=== PATIENT | male | born 1995 | race African-American/Black ===

== ENCOUNTER 2016-06-23 02:39 | Emergency (ER) | payer OTHER ==
[~2016-06-23] VITALS: Ht 185.4 cm; Wt 98.0 kg
[~2016-06-23 02:39] MED LIST: BACT800T5 PO; IBUP800T23 PO; MOTR200T PO; PANT20 PO; SUCR1TAB PO; ZOFR4TAB3 SL
[2016-06-23 02:40] VITALS: BP 118/81; PULSE 66; RESP 18; TEMP 98.2; O2SAT 100
--- NOTE | 2016-06-23 03:31 | PD ---
HPI Chief Complaint: Injury Time Seen by Provider: 03:27 Travel History International Travel<30 days: No Contact w/Intl Traveler<30days: No Traveled to known affect area: No History of Present Illness HPI Patient comes in for evaluation of pain and swelling noted of his left middle finger 2 days. Patient denies any known trauma, but states he does chew his fingers. Patient denies doing anything for this. Patient having throbbing like pain without radiation cuticle his left little finger. Pain is worse with palpation. PFSH Past Medical History Medical History: Denies Significant Hx Diminished Hearing: No Tetanus Vaccination: < 5 Years Influenza Vaccination: No Past Surgical History Surgical History: No Previous Surgery Social History Alcohol Use: Yes Tobacco Use: No Substance Use: No Allergies-Medications (Allergen,Severity, Reaction): Coded Allergies: No Known Allergies (Unverified , 06/23/16) Reported Meds & Prescriptions Reported Meds & Active Scripts Active Naprosyn (Naproxen) 500 Mg Tab 500 Mg PO Q12HR PRN Bactrim DS (Sulfamethoxazole-Trimethoprim) 800-160 Mg Tab 1 Tab PO BID Review of Systems Except as stated in HPI: all other systems reviewed are Neg Physical Exam Narrative GENERAL: Well-developed, overly nourished, in no acute distress, and non-ill appearing. SKIN: Warm and dry. Paronychia noted left middle finger is tender to palpation. There is no felon noted. HEAD: Atraumatic. Normocephalic. EYES: Pupils equal and round. EOMI. No scleral icterus. No injection or drainage. ENT: No nasal bleeding or discharge. Mucous membranes pink and moist. NECK: Trachea midline. Supple. No nuclear rigidity. RESPIRATORY: No accessory muscle use. No respiratory distress. MUSCULOSKELETAL: No obvious deformities. No clubbing. No cyanosis. No edema. Full range of motion. NEUROLOGICAL: Awake and alert. No obvious cranial nerve deficits. Motor grossly within normal limits. Normal speech. PSYCHIATRIC: Appropriate mood and affect; insight and judgment normal. Data Data Last Documented VS Vital Signs Date Time Temp Pulse Resp B/P Pulse Ox O2 Delivery O2 Flow Rate FiO2 06/23/16 03:19 16 99 Room Air 06/23/16 02:40 98.2 66 118/81 MDM Medical Decision Making Medical Screen Exam Complete: Yes Emergency Medical Condition: Yes Differential Diagnosis Paronychia, felon, cellulitis, other Narrative Course The patient presented with a paronychia to the finger. There was no extending cellulitis or evidence of suppurative tendonitis. There was no evidence of subungual involvement or felon. Incision and drainage was performed and small pus was liberated. The patient was given wound care and infection warnings and discharged home on pain medicines and antibiotics. The patient was also instructed to follow up with primary care physician and warnings to return to ED if worsens, or as directed. The patient agreed with plan. Patient in no obvious distress upon re-evaluation. Patient was asked if they wanted to speak to my attending, which the patient did not wish to do at this time. Any questions/concerns in reference to patient diagnosis/condition discussed and clarified prior to patient's discharge. Reinforced sheer importance of close follow up with patient's primary physician or primary care clinic. Instructed patient to return to ED immediately, if symptoms return/ worsen. Pt showed understanding of above instructions. Further instructions and recommendations were detailed in discharge paperwork. Pt ambulated without difficulty out of ED at discharge. Procedures Procedure Narrative Verbal consent was obtained. Area was anesthetized using ethyl chloride spray. Small puncture wound was used using 18-gauge needle. Small amount purulent drainage was excised. Patient tolerated procedure well. There was no complications. Diagnosis Primary Impression: Paronychia Qualified Code: L03.012 - Paronychia, left Patient Instructions: General Instructions, Paronychia (ED) Additional Instructions: Follow-up with your primary care physician in 2-3 days for reevaluation. Take all medication as prescribed. Keep wound dry and clean as possible using soap and water. Return to the emergency department if symptoms get worse. Med/Other Pt SpecificInfo: Prescription(s) given Scripts Naproxen (Naprosyn)500 Mg Mrs076 Mg PO Q12HR PRN (PAIN SCALE 1 TO 10) #12 TAB Ref 0 Prov:Mich Bruno MD 06/23/16 Sulfamethoxazole-Trimethoprim (Bactrim DS)800-160 Mg Tab1 Tab PO BID #20 TAB Ref 0 Prov:Mich Bruno MD 06/23/16 Disposition: 01 DISCHARGE HOME Condition: Stable Sourav Mcghee Jun 23, 2016 03:31
[2016-06-23] MEDS ORDERED: BACT800T5 PO (03:32)
[2016-06-23] MEDS ORDERED: NAPR500 PO (03:32)
== END 2016-06-23 03:36 | disposition home or self-care (01) ==
LOC: NEPB 02:39
DX: L03.012 Cellulitis of left finger (principal)
CPT/HCPCS: 10060

== ENCOUNTER 2016-06-25 15:32 | Emergency (ER) | payer OTHER ==
[~2016-06-25] VITALS: Ht 185.4 cm; Wt 95.5 kg
[~2016-06-25 15:32] MED LIST changes: -IBUP800T23 PO; -MOTR200T PO; +NAPR500 PO; -PANT20 PO; -SUCR1TAB PO; -ZOFR4TAB3 SL
[2016-06-25 15:34] VITALS: BP 151/79; PULSE 78; RESP 16; TEMP 98.5; O2SAT 98
[2016-06-25] MEDS ORDERED: BUPIVACAINE HCL PF 0.5% 10 ML VIAL INFIL ONE (17:00)
[2016-06-25] MEDS ORDERED: LIDOCAINE HCL 1% 50 ML VIAL INFIL ONE (17:00)
--- NOTE | 2016-06-25 17:10 | PD ---
HPI Chief Complaint: Skin Problem Time Seen by Provider: 17:05 Travel History International Travel<30 days: No Contact w/Intl Traveler<30days: No Traveled to known affect area: No History of Present Illness HPI 21-year-old male presents to the emergency department for evaluation of left third finger swelling and pain for 4 days. Patient states that he does have a history of biting his fingernails. States that this has happened to him in the past. States he was seen in our emergency room 2 days ago and had a needle poked into the area to drain it and was placed on antibiotics. States he has been taking the antibiotics as prescribed. States that the swelling is the same as it was 2 days ago but that now there is a purplish discoloration to the area. States it is not improved at all but it is also not worse. Denies any fever, chills, numbness or tingling, discharge or drainage. No other complaints. PFSH Past Medical History Medical History: Denies Significant Hx Diminished Hearing: No Social History Alcohol Use: Yes Tobacco Use: No Substance Use: No Allergies-Medications (Allergen,Severity, Reaction): Coded Allergies: No Known Allergies (Unverified , 06/25/16) Reported Meds & Prescriptions Reported Meds & Active Scripts Active Naprosyn (Naproxen) 500 Mg Tab 500 Mg PO Q12HR PRN Bactrim DS (Sulfamethoxazole-Trimethoprim) 800-160 Mg Tab 1 Tab PO BID Review of Systems Except as stated in HPI: all other systems reviewed are Neg Physical Exam Narrative GENERAL: Well-nourished and well-developed male patient in no acute distress who is nontoxic appearing. SKIN: Warm and dry. HEAD: Normocephalic and atraumatic. EYES: No injection, drainage, or hyphema noted. PERRLA. EOMI. ENT: No nasal drainage noted. Oropharynx is clear. NECK: Supple and the trachea is midline. CARDIOVASCULAR: Regular rate and rhythm. RESPIRATORY: Breath sounds are equal bilaterally with no accessory muscle use, wheezing, rhonchi, or crackles. EXTREMITY: Left hand third finger with paronychia. No evidence of felon. Full range of motion in all joints. No joint swelling/injury. Normal opposition of thumb. Distal extremity neurovascularly intact with intact two point discrimination. NEUROLOGICAL: Awake, alert, and oriented. Normal speech and gait. Cranial nerves are grossly intact. Data Data Last Documented VS Vital Signs Date Time Temp Pulse Resp B/P Pulse Ox O2 Delivery O2 Flow Rate FiO2 06/25/16 15:34 98.5 78 16 151/79 98 Room Air Orders Bupivacaine Pf 0.5% Inj (Marcaine Pf 0.5 (06/25/16 17:00) Lidocaine 1% Inj (50 Ml) (Xylocaine 1% I (06/25/16 17:00) MDM Medical Decision Making Medical Screen Exam Complete: Yes Emergency Medical Condition: Yes Differential Diagnosis Paronychia versus abscess versus cellulitis Narrative Course 21-year-old male presents to the emergency department for evaluation of left hand third finger paronychia for 4 days. Patient is afebrile, vital signs are stable. He was seen here 2 days ago and had a needle drainage. He is reporting that the swelling has been the same since then, he is been taking the antibiotics as prescribed. There is a clear paronychia. No evidence of a felon. I&D is performed, see procedure narrative. Patient is instructed to continue taking antibiotics and advised warm soaks in Epsom salt. Advised to follow-up with his PCP. Discussed when to return to the emergency department. Patient verbalizes understanding and agreement with treatment plan. Procedures Procedure Narrative After the risks and benefits were discussed the following procedure was performed: INCISION AND DRAINAGE OF ABSCESS: The area was prepped and was sterilely draped. A digital block is performed using 1% lidocaine and 0.5% bupivacaine. The finger was properly anesthetized. A number 11 scalpel was used to make a 0.5 -cm incision across the area of the abscess. Purulence was expelled. Cultures were obtained. The abscess was drained an irrigated with normal saline. Sterile dressing applied. Diagnosis Primary Impression: Paronychia Qualified Code: L03.012 - Paronychia, left Referrals: Primary Care Physician Patient Instructions: General Instructions, Paronychia (ED) Additional Instructions: Soak finger in warm epsom salts. Continue antibiotics. Follow-up with your Primary Care Physician. Return to the ED for any acute worsening of symptoms. Med/Other Pt SpecificInfo: No Change to Meds Disposition: 01 DISCHARGE HOME Condition: Stable Malina Perez Jun 25, 2016 17:10
== END 2016-06-25 17:35 | disposition home or self-care (01) ==
LOC: NEPB 15:32
DX: L03.012 Cellulitis of left finger (principal); L02.512 Cutaneous abscess of left hand; B96.89 Other specified bacterial agents as the cause of diseases classified elsewhere; B96.3 Hemophilus influenzae [H. influenzae] as the cause of diseases classified elsewhere
CPT/HCPCS: 10060; 86403; 87070; 87185

== ENCOUNTER 2016-07-01 20:11 | Inpatient (IN) | payer OTHER ==
[~2016-07-01] VITALS: Ht 185.4 cm; Wt 95.0 kg
[2016-07-01 20:13] VITALS: BP 124/77; PULSE 107; RESP 16; TEMP 99.5; O2SAT 98
[2016-07-01] MEDS ORDERED: CEPH250C PO (20:36)
--- NOTE | 2016-07-01 22:53 | PD ---
HPI Chief Complaint: GI Complaint Time Seen by Provider: 22:36 Travel History International Travel<30 days: No Contact w/Intl Traveler<30days: No Traveled to known affect area: No History of Present Illness HPI The patient is a 21 year old male who presents to the [facility] emergency department with a history of left upper quadrant abdominal pain, nausea or vomiting, and loss of appetite that began on Thursday. The patient reports that he is currently on naproxen, Bactrim DS, and Keflex since June 23 related to a left hand cellulitis. He reports that the cellulitis has improved , however now he is experiencing dark stools 2 on Thursday, subjective fever, nausea and vomiting 3, with blood in his emesis yesterday times one. He reports that he has lightheaded sensation although he has not been eating well for the last 4 days. He reports that he has shortness of breath with exertion. The patient reports that recently he has been having sensations of acid reflux , heartburn. The patient denies any cough, congestion, neck pain, chest pain, diarrhea, urinary symptoms, or neurologic symptoms. [facility] Past Medical History Narrative Medical The patient's past medical history is reportedly none. Medical History: Denies Significant Hx Diminished Hearing: No Tetanus Vaccination: Unknown Influenza Vaccination: No Past Surgical History Narrative Surgical The patient's past surgical history is reportedly none. Surgical History: No Previous Surgery Social History Alcohol Use: Yes Tobacco Use: No Substance Use: No Allergies-Medications (Allergen,Severity, Reaction): Coded Allergies: No Known Allergies (Unverified , 07/01/16) Reported Meds & Prescriptions Reported Meds & Active Scripts Active Naprosyn (Naproxen) 500 Mg Tab 500 Mg PO Q12HR PRN Bactrim DS (Sulfamethoxazole-Trimethoprim) 800-160 Mg Tab 1 Tab PO BID Reported Cephalexin 250 Mg Cap 250 Mg PO Q6H Review of Systems Except as stated in HPI: all other systems reviewed are Neg General / Constitutional: Positive: Fever (subjective) Eyes: No: Visual changes HENT: Positive: Lightheadedness, No: Headaches Cardiovascular: Positive: Dyspnea on exertion, No: Chest Pain or Discomfort Respiratory: Positive: Shortness of Breath, No: Cough Gastrointestinal: Positive: Nausea, Vomiting, Abdominal Pain, Hematemesis, Changes in Bowel Habits, Indigestion, Loss of Appetite Genitourinary: No: Dysuria Musculoskeletal: No: Pain Skin: No Rash Neurologic: No: Weakness, Focal Abnormalities, Change in Mentation, Slurred Speech, Sensory Disturbance Psychiatric: No: Depression Endocrine: No: Polydipsia Hematologic/Lymphatic: No: Easy Bruising Physical Exam Narrative General: The patient is a well-developed nourished male in no acute distress. Head and Neck exam: Head is normocephalic atraumatic. Eyes: EOMI, pupils are equal round and reactive to light. Nose: Midline septum with pink mucous membranes Mouth: Dentition unremarkable. Moist mucus membranes. Posterior oropharynx is not erythematous. No tonsillar hypertrophy. Uvula midline. Airway patent. Neck: No palpable lymphadenopathy. No nuchal rigidity. No thyromegaly. Cardiovascular: Sinus tachycardia in the low 100s without murmurs, gallops, or rubs. No pulse deficit to the extremities and simultaneous palpation of his radial artery and auscultation. Lungs: Clear to auscultation bilaterally. No wheezes, rhonchi, or rales. Abdomen: Soft, with tenderness on palpation of the left upper quadrant of the abdomen, no other tenderness on palpation of the other quadrants of the abdomen. No guarding, rebound, or rigidity. Negative [place] sign. Normal bowel sounds are audible. No tenderness on palpation of McBurney's point. Extremities: No clubbing, cyanosis, or edema. No calf tenderness on palpation. 2+ pulses in bilateral upper extremities. Back: No costovertebral angle tenderness to palpation. Neurologic Exam: Grossly nonfocal. Skin Exam: No rash noted. Intact skin that is warm and dry. RECTAL EXAM: No masses or tenderness, stool is black in color, Hemoccult positive. Data Data Last Documented VS Vital Signs Date Time Temp Pulse Resp B/P Pulse Ox O2 Delivery O2 Flow Rate FiO2 07/01/16 20:38 16 07/01/16 20:13 99.5 107 124/77 98 Orders Complete Blood Count With Diff (07/01/16 22:46) Comprehensive Metabolic Panel (07/01/16 22:46) Prothrombin Time / Inr (Pt) (07/01/16 22:46) Act Partial Throm Time (Ptt) (07/01/16 22:46) Lipase (07/01/16 22:46) Urinalysis - C+S If Indicated (07/01/16 22:46) Magnesium (Mg) (07/01/16 22:46) Enteric Path (Stool) (07/01/16 22:46) C Diff Toxin Pcr (07/01/16 22:46) Chest, Single Ap (07/01/16 22:46) Iv Access Insert/Monitor (07/01/16 22:46) Ecg Monitoring (07/01/16 22:46) Oximetry (07/01/16 22:46) Type And Screen (07/01/16 22:46) Stool Wbc (Leukocytes) (07/01/16 22:46) Sodium Chlor 0.9% 1000 Ml Inj (Ns 1000 M (07/01/16 23:00) Ondansetron Inj (Zofran Inj) (07/01/16 23:00) Pantoprazole Inj (Protonix Inj) (07/01/16 23:00) Admit Order (Ed Use Only) (07/02/16 01:11) Ct Abd/Pel W Iv Contrast(Rout) (07/02/16 01:11) Pantoprazole Inj (Protonix Inj) (07/02/16 01:15) Pantoprazole Inj (Protonix Inj) (07/02/16 01:15) Labs Laboratory Tests Test 07/01/16 07/01/16 23:15 23:20 Sodium Level 136 MEQ/L Potassium Level 4.2 MEQ/L Chloride Level 98 MEQ/L Carbon Dioxide Level 25.3 MEQ/L Anion Gap 13 MEQ/L Blood Urea Nitrogen 16 MG/DL Creatinine 1.47 MG/DL Estimat Glomerular Filtration 73 ML/MIN Rate Random Glucose 93 MG/DL Calcium Level 8.4 MG/DL Magnesium Level 2.1 MG/DL Total Bilirubin 0.3 MG/DL Aspartate Amino Transf 52 U/L (AST/SGOT) Alanine Aminotransferase 30 U/L (ALT/SGPT) Alkaline Phosphatase 65 U/L Total Protein 8.2 GM/DL Albumin 4.2 GM/DL Lipase 273 U/L Prothrombin Time 17.2 SEC Prothromb Time International 1.5 RATIO Ratio Activated Partial 42.5 SEC Thromboplast Time White Blood Count 3.3 TH/MM3 Red Blood Count 5.21 MIL/MM3 Hemoglobin 11.9 GM/DL Hematocrit 37.2 % Mean Corpuscular Volume 71.4 FL Mean Corpuscular Hemoglobin 22.9 PG Mean Corpuscular Hemoglobin 32.1 % Concent Red Cell Distribution Width 13.7 % Platelet Count 117 TH/MM3 Mean Platelet Volume 8.3 FL Neutrophils (%) (Auto) 64.6 % Lymphocytes (%) (Auto) 27.6 % Monocytes (%) (Auto) 7.3 % Eosinophils (%) (Auto) 0.0 % Basophils (%) (Auto) 0.5 % Neutrophils # (Auto) 2.1 TH/MM3 Lymphocytes # (Auto) 0.9 TH/MM3 Monocytes # (Auto) 0.2 TH/MM3 Eosinophils # (Auto) 0.0 TH/MM3 Basophils # (Auto) 0.0 TH/MM3 CBC Comment AUTO DIFF Differential Total Cells 100 Counted Neutrophils % (Manual) 35 % Band Neutrophils % 43 % Lymphocytes % 14 % Monocytes % 7 % Neutrophils # (Manual) 2.6 TH/MM3 Metamyelocytes 1 % Differential Comment FINAL DIFF MANUAL Platelet Estimate LOW Platelet Morphology Comment NORMAL Blood Type O POSITIVE Antibody Screen NEGATIVE Blood Bank Comment MDM Medical Decision Making Medical Screen Exam Complete: Yes Emergency Medical Condition: Yes Medical Record Reviewed: Yes Interpretation(s) Laboratory Tests Test 07/01/16 07/01/16 23:15 23:20 Creatinine 1.47 MG/DL (0.60-1.30) Estimat Glomerular Filtration 73 ML/MIN (>89) Rate Calcium Level 8.4 MG/DL (8.5-10.1) Aspartate Amino Transf 52 U/L (15-37) (AST/SGOT) Prothrombin Time 17.2 SEC (9.8-11.6) Activated Partial 42.5 SEC Thromboplast Time (24.3-30.1) White Blood Count 3.3 TH/MM3 (4.0-11.0) Hemoglobin 11.9 GM/DL (13.0-17.0) Hematocrit 37.2 % (39.0-51.0) Mean Corpuscular Volume 71.4 FL (80.0-100.0) Mean Corpuscular Hemoglobin 22.9 PG (27.0-34.0) Platelet Count 117 TH/MM3 (150-450) Lymphocytes # (Auto) 0.9 TH/MM3 (1.0-4.8) Band Neutrophils % 43 % (0-6) Platelet Estimate LOW (NORMAL) Last Impressions Abdomen/Pelvis CT 07/02/16 0111 Signed Impressions: Service Date/Time: Saturday, July 02, 2016 01:24 - CONCLUSION: 1. No acute findings on abdomen and pelvic CT. Small right renal cyst. Small hiatal hernia. Herbert Garcia MD Chest X-Ray 07/01/16 2246 Signed Impressions: Service Date/Time: Friday, July 01, 2016 22:59 - CONCLUSION: No acute disease. Herbert Garcia MD Differential Diagnosis AVM all formation, versus colitis, versus peptic ulcer bleeding, versus hemorrhagic esophagitis, versus gastritis Narrative Course During the course of the patients emergency department visit, the patients history, examination, and differential diagnosis were reviewed with the patient. The patient had IV access obtained and blood work sent for analysis. The patient was placed on a cork compounder with oximetry and blood pressure monitoring. Stool studies were ordered including C. difficile toxin. The patient was provided Protonix 40 mg IV, Zofran 4 mg IV, normal saline 1 L IV fluid bolus. The patient on rectal examination was noted to have Hemoccult positive stools and was given an additional Protonix 40 mg IV, Protonix 80 mg IV per hour drip was started. The patients laboratory studies were reviewed and remarkable for a CBC that shows a white count of 3.3, hemoglobin 11.9, platelets 117, neutrophils 35, bands 43, CMP is remarkable for a creatinine of 1.47, calcium 8.3, AST 52, INR 1.5 Radiology studies were reviewed and remarkable for a chest x-ray that shows no acute abnormality. CT scan of the abdomen and pelvis shows no acute abnormality , small right renal cyst, small hiatal hernia. Given the patient's coagulopathy, Hemoccult positive stools, GI bleed, the patient will be admitted to the hospital for continued evaluation and treatment. The patients results were discussed with the patient, including the plan of care. I explained that further testing and/ or monitoring is indicated based on the patients history, examination, and/ or laboratory findings. Therefore, I recommended admission for additional evaluation. The patient expressed understanding and was agreeable with this plan. The patient was admitted to the hospital in stable condition and sent to a [facility]. Physician Communication Physician Communication The patient's case was discussed with Dr. Masters who did agree to admit the patient for further evaluation and treatment at this time. Diagnosis Primary Impression: GI bleed Qualified Code: K92.2 - Gastrointestinal hemorrhage, unspecified gastrointestinal hemorrhage type Additional Impressions: Coagulopathy Thrombocytopenia Admitting Information Admitting Physician Requests: Admit Crissy Gould MD Jul 01, 2016 22:53
[2016-07-01] MEDS ORDERED: PANTOPRAZOLE SODIUM 40 MG VIAL IV PUSH ONE (23:00)
[2016-07-01] MEDS ORDERED: SODIUM CHLOR 0.9% 1000 ML INJ 1,000 ML IV ONE (23:00)
[2016-07-01] MEDS ORDERED: ONDANSETRON HCL 4 MG/2 ML VIAL IV ONE (23:00)
--- NOTE | 2016-07-01 23:09 | RADRPT ---
EXAM DATE/TIME: 07/01/2016 22:59 [facility] COMPARISON: No previous studies available for comparison. INDICATIONS : Vomiting and abdominal pain for the past few days. MEDICAL HISTORY : None. SURGICAL HISTORY : None. ENCOUNTER: Initial ACUITY: 4 - 6 days PAIN SCORE: 5/10 LOCATION: Bilateral chest FINDINGS: A single view of the chest demonstrates the lungs to be symmetrically aerated without evidence of mas s, infiltrate or effusion. The cardiomediastinal contours are unremarkable. Osseous structures are intact. CONCLUSION: No acute disease. Herbert Garcia MD on July 01, 2016 at 23:07 Board Certified Radiologist. This report was verified electronically.
[2016-07-01 23:31] LABS: AUTOMATED NEUTROPHIL # 2.1 TH/MM3 (1.8-7.7); BASOPHIL % 0.5 % (0.0-2.0); HEMATOCRIT 37.2 % (39.0-51.0); LYMPH % 27.6 % (9.0-44.0); LYMPHOCYTE # 0.9 TH/MM3 (1.0-4.8); MEAN CELL VOLUME 71.4 FL (80.0-100.0); MEAN CORPUSCULAR HEMOGLOBIN 22.9 PG (27.0-34.0); MEAN CORPUSCULAR HGB CONC 32.1 % (32.0-36.0); MONO % 7.3 % (0.0-8.0); NEUT % 64.6 % (16.0-70.0); PLATELET COUNT 117 TH/MM3 (150-450); RED BLOOD COUNT 5.21 MIL/MM3 (4.50-5.90); RED CELL DISTRIBUTION WIDTH 13.7 % (11.6-17.2); WHITE BLOOD COUNT 3.3 TH/MM3 (4.0-11.0)
[2016-07-01 23:41] LABS: APTT (PATIENT) 42.5 SEC (24.3-30.1); INTERNATIONAL NORMALIZED RATIO 1.5 RATIO; PROTHROMBIN TIME - PATIENT 17.2 SEC (9.8-11.6)
[2016-07-01 23:44] LABS: HEMO FLAGS AUTO DIFF
[2016-07-01 23:54] LABS: ALKALINE PHOSPHATASE 65 U/L (45-117); TOTAL BILIRUBIN ADULT 0.3 MG/DL (0.2-1.0)
[2016-07-01 23:58] LABS: ALT (GPT) 30 U/L (12-78); ANION GAP 13 MEQ/L (5-15); AST (GOT) 52 U/L (15-37); BICARBONATE 25.3 MEQ/L (21.0-32.0); BLOOD UREA NITROGEN 16 MG/DL (7-18); CHLORIDE 98 MEQ/L (98-107); GLOMERULAR FILTRATION RATE 73 ML/MIN (>89); MAGNESIUM 2.1 MG/DL (1.5-2.5); POTASSIUM 4.2 MEQ/L (3.5-5.1); SODIUM (NA) 136 MEQ/L (136-145)
[2016-07-02] VITALS (9 sets, daily range): BP systolic 101–115; BP diastolic 56–72; PULSE 62–98; RESP 18–20; TEMP 98.8–103.1; O2SAT 92–100
[2016-07-02] MEDS ORDERED: PANTOPRAZOLE INJ 80 MG in SODIUM CHLORIDE 0.9% INJ 100 ML IV SCH (01:15)
[2016-07-02] MEDS ORDERED: PANTOPRAZOLE SODIUM 40 MG VIAL IV PUSH ONE (01:15)
[2016-07-02] MEDS ORDERED: SODIUM CHLORIDE 0.9% FLUSH 5 ML FLUSH FLUSH PRN (01:30)
[2016-07-02] MEDS ORDERED: NALOXONE HCL 0.4 MG/ML AMP IV PRN (01:30)
[2016-07-02] MEDS ORDERED: IOHEXOL 350 MG/ML 10 ML VIAL (for RAD DIAG) IV ONE (01:33)
[2016-07-02 01:54] LABS: BANDS 43 % (0-6); METAMYELOCYTES 1 % (0-1); NEUTROPHIL # MANUAL DIFF 2.6 TH/MM3 (1.8-7.7); PLATELET ESTIMATE SMEAR LOW (NORMAL); PLATELET MORPHOLOGY NORMAL (NORMAL); POLYS (SEG NEUTROPHILS) 35 % (16-70); SCAN/DIFF FINAL DIFF MANUAL; WBC DIFF SAMPLE 100
--- NOTE | 2016-07-02 01:54 | RADRPT ---
EXAM DATE/TIME: 07/02/2016 01:24 [facility] COMPARISON: No previous studies available for comparison. INDICATIONS : Nausea vomiting and constipation for three days IV CONTRAST: 95 cc Omnipaque 350 (iohexol) IV ORAL CONTRAST: No oral contrast ingested. RADIATION DOSE: 10.6 CTDIvol (mGy) MEDICAL HISTORY : None SURGICAL HISTORY : None. ENCOUNTER: Initial ACUITY: 3 days PAIN SCALE: 4/10 LOCATION: Diffuse abdomen TECHNIQUE: Volumetric scanning of the abdomen and pelvis was performed. Using automated exposure control and ad justment of the mA and/or kV according to patient size, radiation dose was kept as low as reasonably achievable to obtain optimal diagnostic quality images. FINDINGS: Lung bases are clear. Small hiatal hernia. No acute findings in the liver, spleen, adrenals, kidneys or pancreas. A 1.9 cm cyst lower pole right kidney. No calcified gallstones or biliary ductal dilatation. There is no free fluid or free air. No bowel obstruction. CONCLUSION: 1. No acute findings on abdomen and pelvic CT. Small right renal cyst. Small hiatal hernia. Herbert Garcia MD on July 02, 2016 at 1:49 Board Certified Radiologist. This report was verified electronically.
[2016-07-02] MEDS: SODIUM CHLORIDE 0.9% FLUSH 5 ML FLUSH FLUSH SCH ×2 (08:09→21:00)
--- NOTE | 2016-07-02 10:17 | PD.CONS ---
HPI History of Present Illness This is a 21 year old AA male with out significant PMH who presents to the ED for evaluation of acute onset of RUQ pain, hematemesis, black tarry stools, and loss of appetite that began on Thursday. Patient has been on on naproxen, Bactrim DS, and Keflex since June 23 related to a left hand cellulitis. He drinks socially, no previous history of this. Reports the emesis is dark red usually twice a day. He had black tarry stools on Thursday, but none after that till today. He reports emesis X 2 this morning and black tarry stools X 2 as well 2 hours ago. The pain is throbbing in nature, began on Thursday. He denies hematochezia. He reports shortness of breath, chills, loss of appetite, light headed sensation, and recent heart burn. CT was done and that showed no acute findings, small renal cyst, and small hiatal hernia. hgb is 11.9, slight elevation of AST 52. (Sarbjit Hernandez) PFSH Past Medical History Cellulitis of left hand Past Surgical History None (Sarbjit Hernandez) Coded Allergies: No Known Allergies (Unverified , 07/01/16) Medications Current Medications Medications (Trade) Dose Ordered Sig/Aliza Route Start Time Stop Time Status Last Admin (Protonix Inj/NS Inj) 100 ml @ 10 mls/hr CONTINUOUS IV 07/02/16 01:15 07/02/16 04:25 (NS Flush) 2 ml UNSCH PRN FLUSH 07/02/16 01:30 (NS Flush) 2 ml BID FLUSH 07/02/16 09:00 (Narcan Inj) 0.4 mg UNSCH PRN IV 07/02/16 01:30 Family History Non contributory Social History Drinks socially No smoking No illicit drug use (Sarbjit Hernandez) Review of Systems Constitutional: COMPLAINS OF: Fatigue, Chills Endocrine: DENIES: Polyuria Eyes: DENIES: Double Vision Ears, nose, mouth, throat: DENIES: Hoarseness Respiratory: COMPLAINS OF: Shortness of breath Cardiovascular: DENIES: Lower Extremity Edema Gastrointestinal: COMPLAINS OF: Abdominal pain, Black stools, Nausea, Vomiting , Heartburn, Hematemesis, DENIES: Bloody stools, Constipation, Diarrhea, Difficulty Swallowing, Anorexia, Odynophagia, Swelling of Abdomen Genitourinary: DENIES: Hematuria Musculoskeletal: DENIES: Neck pain Integumentary: DENIES: Jaundice Hematologic/lymphatic: DENIES: Bruising Immunologic/allergic: DENIES: Eczema Neurologic: DENIES: Abnormal gait Psychiatric: DENIES: Anxiety (Sarbjit Hernandez) GI Exam Vitals I&O Vital Signs Date Time Temp Pulse Resp B/P Pulse Ox O2 Delivery O2 Flow Rate FiO2 07/02/16 08:00 102.5 98 18 105/59 100 07/02/16 04:41 87 07/02/16 03:42 102.2 94 20 111/56 100 07/02/16 03:00 86 20 104/58 99 Room Air 07/02/16 01:42 101.0 94 20 108/66 99 Room Air 07/01/16 20:38 16 07/01/16 20:13 99.5 107 16 124/77 98 Imaging Last Impressions Abdomen/Pelvis CT 07/02/16 0111 Signed Impressions: Service Date/Time: Saturday, July 02, 2016 01:24 - CONCLUSION: 1. No acute findings on abdomen and pelvic CT. Small right renal cyst. Small hiatal hernia. Herbert Garcia MD Chest X-Ray 07/01/166 Signed Impressions: Service Date/Time: Friday, July 01, 2016 22:59 - CONCLUSION: No acute disease. Herbert Garcia MD Laboratory Test 07/01/16 07/01/16 23:15 23:20 Sodium Level 136 MEQ/L Potassium Level 4.2 MEQ/L Chloride Level 98 MEQ/L Carbon Dioxide Level 25.3 MEQ/L Anion Gap 13 MEQ/L Blood Urea Nitrogen 16 MG/DL Creatinine 1.47 MG/DL Estimat Glomerular Filtration 73 ML/MIN Rate Random Glucose 93 MG/DL Calcium Level 8.4 MG/DL Magnesium Level 2.1 MG/DL Total Bilirubin 0.3 MG/DL Aspartate Amino Transf 52 U/L (AST/SGOT) Alanine Aminotransferase 30 U/L (ALT/SGPT) Alkaline Phosphatase 65 U/L Total Protein 8.2 GM/DL Albumin 4.2 GM/DL Lipase 273 U/L Prothrombin Time 17.2 SEC Prothromb Time International 1.5 RATIO Ratio Activated Partial 42.5 SEC Thromboplast Time White Blood Count 3.3 TH/MM3 Red Blood Count 5.21 MIL/MM3 Hemoglobin 11.9 GM/DL Hematocrit 37.2 % Mean Corpuscular Volume 71.4 FL Mean Corpuscular Hemoglobin 22.9 PG Mean Corpuscular Hemoglobin 32.1 % Concent Red Cell Distribution Width 13.7 % Platelet Count 117 TH/MM3 Mean Platelet Volume 8.3 FL Neutrophils (%) (Auto) 64.6 % Lymphocytes (%) (Auto) 27.6 % Monocytes (%) (Auto) 7.3 % Eosinophils (%) (Auto) 0.0 % Basophils (%) (Auto) 0.5 % Neutrophils # (Auto) 2.1 TH/MM3 Lymphocytes # (Auto) 0.9 TH/MM3 Monocytes # (Auto) 0.2 TH/MM3 Eosinophils # (Auto) 0.0 TH/MM3 Basophils # (Auto) 0.0 TH/MM3 CBC Comment AUTO DIFF Differential Total Cells 100 Counted Neutrophils % (Manual) 35 % Band Neutrophils % 43 % Lymphocytes % 14 % Monocytes % 7 % Neutrophils # (Manual) 2.6 TH/MM3 Metamyelocytes 1 % Differential Comment FINAL DIFF MANUAL Platelet Estimate LOW Platelet Morphology Comment NORMAL Blood Type O POSITIVE Antibody Screen NEGATIVE Blood Bank Comment Physical Examination HEENT: normocephalic; atraumatic; no jaundice. NECK: Neck is supple, no JVD, no lymphadenopathy. CHEST: Chest is clear to auscultation and percussion. CARDIAC: Regular rate and rhythm with no murmur gallop or rubs. ABDOMEN: Soft, nondistended, epigastric tenderness; no hepatosplenomegaly; bowel sounds are present in all four quadrants. EXTREMITIES: No clubbing, cyanosis, or edema. SKIN: Normal; no rash; no jaundice. CLINICAL STAFF PHARMACIST: No focal deficits; alert and oriented times three. (Amawi,Nicholasawla NON LICENSED [employer] PLANT OPERATOR) Assessment and Plan Plan - GI bleed/hematemesis/melena/anemia- Patient has been on on naproxen, Bactrim DS, and Keflex since June 23 related to a left hand cellulitis. He drinks socially, no previous history of this. Reports the emesis is dark red usually twice a day. He had black tarry stools on Thursday, but none after that till today. He reports emesis X 2 this morning and black tarry stools X 2 as well 2 hours ago. The pain is throbbing in nature, began on Thursday. He denies hematochezia. He reports shortness of breath, chills, loss of appetite, light headed sensation, and recent heart burn. CT was done and that showed no acute findings, small renal cyst, and small hiatal hernia. hgb is 11.9, AST slight elevation of 52. - Abdomen pain/ elevated AST- CT negative for acute findings, this could be PUD and abx induced, will monitor. hepatitis panel Plan: - clear liquids - EGD in am - NPO mn - Hepatitis panel - LFTs in am - Cont PPI - Monitor hh - transfuse as needed - Notify Gi for active bleed - Supportive care - Patient seen and examined by Dr. Cisneros and myself and this note is written on his behalf. (Sarbjit Hernandez) Physician Comments Patient seen and examined Agree with above Continue with current supportive care Monitor labs EGD tomorrow (Keith Cisneros MD) Sarbjit Hernandez Jul 02, 2016 10:17 Keith Cisneros MD Jul 02, 2016 21:21
[2016-07-02] MEDS ORDERED: MORPHINE SULFATE 4 MG/ML INJ IV PUSH PRN (10:30)
[2016-07-02] MEDS ORDERED: ONDANSETRON HCL 4 MG/2 ML VIAL IV PRN (10:30)
[2016-07-02] MEDS ORDERED: SULFAMETHOXAZOLE-TRIMETHOPRIM DS 800-160 MG TAB PO SCH (10:30)
[2016-07-02] MEDS ORDERED: ACETAMINOPHEN/HYDROcodone 325 MG/5 MG TAB PO PRN (10:30)
[2016-07-02] MEDS ORDERED: CEPHALEXIN MONOHYDRATE 250 MG CAP PO SCH (10:30)
--- NOTE | 2016-07-02 10:35 | HHI.HP ---
[facility] Primary [facility] Physician No Primary Care Physician Admission Diagnosis GI Bleed Diagnoses: Chief Complaint: None Travel History International Travel<30 Days: No Contact w/Intl Traveler <30 Da: No Traveled to Known Affected Are: No Sepsis Criteria SIRS Criteria (2 or more): Temp > 100.9 or < 96.8, Heart rate over 90, WBC > 43950, < 4000 or > 10% bands History of Present Illness 21-year-old male with no significant past medical history who presents with abdominal pain, hematemesis, and dark stools. Patient states on Thursday he began having left upper quadrant abdominal pain. Since then he has been having episodes of vomiting with dark vomitus. He has been having dark stools. He states that he has been taking naproxen twice a day for a week her pain from a finger infection. On 06/23 the patient was treated in the ED for paronychia with I&D and Bactrim and Keflex. He has 3 days left of antibiotics. He complains of fevers and chills. No recent rash or arthralgia. Diarrhea for 3 days, loose stools. No recent antibiotic use other than Keflex and Bactrim. No other medical complaints at this time. Review of Systems Except as stated in HPI: all other systems reviewed are Neg Past Family Social History Past Medical History Left middle finger paronychia Past Surgical History I&D 2 of left middle finger paronychia Reported Medications Naprosyn (Naproxen) 500 Mg Tab 500 Mg PO Q12HR PRN Bactrim DS (Sulfamethoxazole-Trimethoprim) 800-160 Mg Tab 1 Tab PO BID Cephalexin 250 Mg Cap 250 Mg PO Q6H Allergies: Coded Allergies: No Known Allergies (Unverified , 07/01/16) Active Ordered Medications Current Medications Medications (Trade) Dose Ordered Sig/Aliza Route Start Time Stop Time Status Last Admin (Protonix Inj/NS Inj) 100 ml @ 10 mls/hr CONTINUOUS IV 07/02/16 01:15 07/02/16 04:25 (NS Flush) 2 ml UNSCH PRN FLUSH 07/02/16 01:30 (NS Flush) 2 ml BID FLUSH 07/02/16 09:00 Naloxone HCl 0.4 mg 0.4 mg UNSCH PRN IV 07/02/16 01:30 (NS 1000 ml Inj) 1,000 ml @ 100 mls/hr Q10H IV 07/02/16 11:00 Family History Reviewed, no family history pertinent to current chief complaint Social History Drinks socially No smoking No illicit drug use Physical Exam Vital Signs Vital Signs Date Time Temp Pulse Resp B/P Pulse Ox O2 Delivery O2 Flow Rate FiO2 07/02/16 08:00 102.5 98 18 105/59 100 07/02/16 04:41 87 07/02/16 03:42 102.2 94 20 111/56 100 07/02/16 03:00 86 20 104/58 99 Room Air 07/02/16 01:42 101.0 94 20 108/66 99 Room Air 07/01/16 20:38 16 07/01/16 20:13 99.5 107 16 124/77 98 Physical Exam GENERAL: Well-developed well-nourished. In mild to moderate distress holding abdomen secondary to pain. SKIN: Warm and dry. No erythema or swelling of left little finger. HEENT: Normocephalic. Pupils equal and round. Mucous membranes pink and moist. CARDIOVASCULAR: Regular rate and rhythm. No murmur appreciated. RESPIRATORY: No accessory muscle use. Clear to auscultation. Breath sounds equal bilaterally. GASTROINTESTINAL: Abdomen soft, epigastric TTP, nondistended. Bowel sounds x4. MUSCULOSKELETAL: No obvious deformities. No clubbing or cyanosis. No edema. NEUROLOGICAL: Awake and alert. No focal neurological deficits. Moves upper and lower extremities spontaneously. Normal speech. PSYCHIATRIC: Appropriate mood and affect; insight and judgment normal. Laboratory Laboratory Tests Test 07/01/16 07/01/16 23:15 23:20 Sodium Level 136 Potassium Level 4.2 Chloride Level 98 Carbon Dioxide Level 25.3 Anion Gap 13 Blood Urea Nitrogen 16 Creatinine 1.47 Estimat Glomerular Filtration 73 Rate Random Glucose 93 Calcium Level 8.4 Magnesium Level 2.1 Total Bilirubin 0.3 Aspartate Amino Transf 52 (AST/SGOT) Alanine Aminotransferase 30 (ALT/SGPT) Alkaline Phosphatase 65 Total Protein 8.2 Albumin 4.2 Lipase 273 Prothrombin Time 17.2 Prothromb Time International 1.5 Ratio Activated Partial 42.5 Thromboplast Time White Blood Count 3.3 Red Blood Count 5.21 Hemoglobin 11.9 Hematocrit 37.2 Mean Corpuscular Volume 71.4 Mean Corpuscular Hemoglobin 22.9 Mean Corpuscular Hemoglobin 32.1 Concent Red Cell Distribution Width 13.7 Platelet Count 117 Mean Platelet Volume 8.3 Neutrophils (%) (Auto) 64.6 Lymphocytes (%) (Auto) 27.6 Monocytes (%) (Auto) 7.3 Eosinophils (%) (Auto) 0.0 Basophils (%) (Auto) 0.5 Neutrophils # (Auto) 2.1 Lymphocytes # (Auto) 0.9 Monocytes # (Auto) 0.2 Eosinophils # (Auto) 0.0 Basophils # (Auto) 0.0 CBC Comment AUTO DIFF Differential Total Cells 100 Counted Neutrophils % (Manual) 35 Band Neutrophils % 43 Lymphocytes % 14 Monocytes % 7 Neutrophils # (Manual) 2.6 Metamyelocytes 1 Differential Comment FINAL DIFF MANUAL Platelet Estimate LOW Platelet Morphology Comment NORMAL Blood Type O POSITIVE Antibody Screen NEGATIVE Blood Bank Comment Result Diagram: 07/01/160 07/01/16 2315 Imaging Last Impressions Abdomen/Pelvis CT 07/02/16 0111 Signed Impressions: Service Date/Time: Saturday, July 02, 2016 01:24 - CONCLUSION: 1. No acute findings on abdomen and pelvic CT. Small right renal cyst. Small hiatal hernia. Herbert Garcia MD Chest X-Ray 07/01/16 2246 Signed Impressions: Service Date/Time: Friday, July 01, 2016 22:59 - CONCLUSION: No acute disease. Herbert Garcia MD Assessment and Plan Assessment and Plan 21-year-old male with no significant past medical history who presents with abdominal pain, hematemesis, and dark stools Suspected upper GI bleed: Upper abdominal pain, hematemesis, dark stools. Imaging review: Abdominal pelvis CT with no acute findings. Labs reviewed: Hemoglobin 11.9, previously 14.1 on 02/13/15 -Continue Protonix gtt. -GI consulted, planning on EGD -Stool studies ordered -Pain control with [place] and IV morphine as needed. -Diet per GI, clear liquids for now, nothing by mouth after midnight -Supportive care with IVF and antiemetics -Trend H&H and transfuse if indicated SIRS: Tmax 102.5, tachycardia, bandemia. Source unclear Abdominal CT unremarkable. Chest x-ray clear. Left middle finger paronychia appears to have resolved. -Stop oral Bactrim and Keflex, has completed 10 days -Check UA -Empiric GI coverage with IV Cipro and Flagyl -Check blood culture -Consider ID consult Acute kidney injury: Creatinine 1.47, previously 1.06 on 02/13/15. IVF. Follow -up BMP. Coagulopathy: Elevated PT, PTT, and INR 1.5. AST 52, otherwise LFTs within normal limits. Trend cardiac profile and LFTs. Hepatitis panel ordered. DVT prophylaxis: SCDs. No chemical prophylaxis with bleeding. Discussed Condition With Patient, GI Dr. Tracey BOSS Travis D. PA Jul 02, 2016 10:35 Freddie Webb MD Jul 02, 2016 15:37
[2016-07-02] MEDS ORDERED: CIPROFLOXACIN 200 MG PREMIX 100 ML IV SCH (11:00)
[2016-07-02] MEDS: SODIUM CHLOR 0.9% 1000 ML INJ 1,000 ML IV SCH ×2 (11:19→21:00)
[2016-07-02] MEDS: metroNIDAZOLE 500 MG INJ 100 ML IV SCH ×2 (11:26→21:03)
[2016-07-02 12:31] LABS: AUTOMATED NEUTROPHIL # 5.7 TH/MM3 (1.8-7.7); BASOPHIL % 0.2 % (0.0-2.0); HEMATOCRIT 44.6 % (39.0-51.0); LYMPH % 17.1 % (9.0-44.0); LYMPHOCYTE # 1.3 TH/MM3 (1.0-4.8); MEAN CELL VOLUME 71.3 FL (80.0-100.0); MEAN CORPUSCULAR HEMOGLOBIN 22.7 PG (27.0-34.0); MEAN CORPUSCULAR HGB CONC 31.8 % (32.0-36.0); MONO % 7.4 % (0.0-8.0); NEUT % 75.3 % (16.0-70.0); PLATELET COUNT 144 TH/MM3 (150-450); RED BLOOD COUNT 6.26 MIL/MM3 (4.50-5.90); RED CELL DISTRIBUTION WIDTH 13.9 % (11.6-17.2); WHITE BLOOD COUNT 7.5 TH/MM3 (4.0-11.0)
[2016-07-02 12:36] LABS: HEMO FLAGS AUTO DIFF
[2016-07-02 12:40] LABS: APTT (PATIENT) 35.1 SEC (24.3-30.1); INTERNATIONAL NORMALIZED RATIO 1.1 RATIO; PROTHROMBIN TIME - PATIENT 12.3 SEC (9.8-11.6)
[2016-07-02 12:52] LABS: ANION GAP 9 MEQ/L (5-15); AST (GOT) 48 U/L (15-37); BICARBONATE 25.6 MEQ/L (21.0-32.0); BLOOD UREA NITROGEN 16 MG/DL (7-18); CHLORIDE 100 MEQ/L (98-107); GLOMERULAR FILTRATION RATE 65 ML/MIN (>89); POTASSIUM 3.8 MEQ/L (3.5-5.1); SODIUM (NA) 135 MEQ/L (136-145)
[2016-07-02 12:55] LABS: ALKALINE PHOSPHATASE 64 U/L (45-117); ALT (GPT) 28 U/L (12-78); TOTAL BILIRUBIN ADULT 0.2 MG/DL (0.2-1.0)
[2016-07-02 13:05] LABS: BANDS 35 % (0-6); METAMYELOCYTES 9 % (0-1); NEUTROPHIL # MANUAL DIFF 6.7 TH/MM3 (1.8-7.7); POLYS (SEG NEUTROPHILS) 45 % (16-70); WBC DIFF SAMPLE 100
[2016-07-02 13:06] LABS: OVALOCYTES 1+ (NORMAL); PLATELET ESTIMATE SMEAR LOW (NORMAL); PLATELET MORPHOLOGY NORMAL (NORMAL)
[2016-07-02 13:07] LABS: SCAN/DIFF FINAL DIFF MANUAL
[2016-07-02] MEDS: PANTOPRAZOLE INJ 80 MG in SODIUM CHLORIDE 0.9% INJ 100 ML IV SCH (14:00)
[2016-07-02 14:13] LABS: BLOOD, URINE MOD (NEG); COMMENT (UR) CULT NOT INDICATED; CULTURE IF INDICATED CULT NOT INDICATED; GLUCOSE,URINE NEG (NEG); GRANULAR CAST, URINE 1 /lpf; HYALINE CAST, URINE 1 /lpf (RARE); KETONE, URINE 80 mg/dL (NEG); MUCUS URINE MANY /lpf (OCC); NITRITE,URINE NEG (NEG); PH, URINE 6.5 (5.0-8.5); SQUAMOUS EPITHELIAL CELL URINE <1 /hpf (0-5); URINE COLOR YELLOW (YELLW/STRAW)
[2016-07-02 14:21] LABS: BACTERIA, URINE FEW /hpf
[2016-07-02] MEDS: CIPROFLOXACIN/DEXT 400 MG/200 ML IV SCH (15:15)
[2016-07-02 15:39] LABS: C. DIFF EPI 027 PRESUMPTIVE NEGATIVE (NEGATIVE); C. DIFF TOXIN PCR NEGATIVE (NEGATIVE)
[2016-07-02 18:41] LABS: HEMATOCRIT 45.2 % (39.0-51.0)
[2016-07-02 18:46] LABS: REVIEW FLAG FINAL
[2016-07-03] VITALS: BP 110/68; PULSE 78; RESP 22; TEMP 98.8; O2SAT 98
[2016-07-03] MEDS: CIPROFLOXACIN/DEXT 400 MG/200 ML IV SCH (00:34)
[2016-07-03] MEDS: PANTOPRAZOLE INJ 80 MG in SODIUM CHLORIDE 0.9% INJ 100 ML IV SCH ×2 (02:48→09:13)
[2016-07-03] MEDS: metroNIDAZOLE 500 MG INJ 100 ML IV SCH ×3 (04:49→20:24)
[2016-07-03 06:59] LABS: APTT (PATIENT) 32.1 SEC (24.3-30.1); INTERNATIONAL NORMALIZED RATIO 1.1 RATIO
[2016-07-03] MEDS: SODIUM CHLOR 0.9% 1000 ML INJ 1,000 ML IV SCH ×2 (07:00→17:42)
[2016-07-03 07:15] LABS: AUTOMATED NEUTROPHIL # 2.8 TH/MM3 (1.8-7.7); BASOPHIL % 0.2 % (0.0-2.0); HEMATOCRIT 41.5 % (39.0-51.0); LYMPHOCYTE # 2.4 TH/MM3 (1.0-4.8); MEAN CELL VOLUME 70.9 FL (80.0-100.0); MEAN CORPUSCULAR HEMOGLOBIN 22.6 PG (27.0-34.0); MEAN CORPUSCULAR HGB CONC 31.9 % (32.0-36.0); MONO % 12.3 % (0.0-8.0); NEUT % 47.5 % (16.0-70.0); PLATELET COUNT 143 TH/MM3 (150-450); RED BLOOD COUNT 5.85 MIL/MM3 (4.50-5.90); RED CELL DISTRIBUTION WIDTH 13.6 % (11.6-17.2)
[2016-07-03 07:21] LABS: BICARBONATE 25.2 MEQ/L (21.0-32.0); INDIRECT BILIRUBIN 0.1 MG/DL (0.0-0.8); POTASSIUM 3.8 MEQ/L (3.5-5.1); TOTAL BILIRUBIN ADULT 0.2 MG/DL (0.2-1.0)
[2016-07-03 07:28] LABS: HEMO FLAGS AUTO DIFF
[2016-07-03 07:58] VITALS: BP 149/73; PULSE 79; RESP 14; TEMP 97.9; O2SAT 97
--- NOTE | 2016-07-03 08:48 | HHI.PR ---
Subjective Remarks Follow-up for abdominal pain, GI bleeding. Stool studies resulted overnight with Shigella. The patient with continued diffuse abdominal cramping, slightly improved compared yesterday. He reports numerous episodes of diarrhea overnight , too many to count. He starts his stool as dark red and black. Reports nausea with one episode of vomiting last night. He reports continued subjective fevers and chills overnight, last temperature max 103.1 yesterday morning, now afebrile. He has no other medical complaints at this time. Objective Vitals Vital Signs Date Time Temp Pulse Resp B/P Pulse Ox O2 Delivery O2 Flow Rate FiO2 07/03/16 07:58 97.9 79 14 149/73 97 07/02/16 23:00 98.8 62 18 115/67 97 07/02/16 19:48 98.8 78 18 115/69 98 07/02/16 16:05 100.6 94 18 101/72 92 07/02/16 11:40 103.1 97 18 108/60 95 I/O 07/02/16 07/02/16 07/02/16 07/03/16 07/03/16 07/03/16 07:00 15:00 23:00 07:00 15:00 23:00 Intake Total 480 ml Balance 480 ml Intake Oral 480 ml # Bowel Movements 1 Result Diagram: 07/03/16 0619 07/03/16 0619 Imaging Last Impressions Abdomen/Pelvis CT 07/02/16 0111 Signed Impressions: Service Date/Time: Saturday, July 02, 2016 01:24 - CONCLUSION: 1. No acute findings on abdomen and pelvic CT. Small right renal cyst. Small hiatal hernia. Herbert Garcia MD Chest X-Ray 07/01/16 2246 Signed Impressions: Service Date/Time: Friday, July 01, 2016 22:59 - CONCLUSION: No acute disease. Herbert Garcia MD Objective Remarks GENERAL: Well-nourished, well-developed young AA male patient in [facility]. SKIN: Warm and dry. No rash. HEENT: Normocephalic. Atraumatic. Pupils equal and round. No scleral icterus. No injection or drainage. Mucous membranes pink and moist. NECK: Supple. Trachea midline. CARDIOVASCULAR: Regular rate and rhythm. S1, S2 noted. No murmur appreciated. RESPIRATORY: No accessory muscle use. Clear to auscultation. Breath sounds equal bilaterally. GASTROINTESTINAL: Abdomen soft, nondistended, minimal diffuse TTP. Normoactive bowel sounds x4. MUSCULOSKELETAL: No obvious deformities. Extremities without clubbing, cyanosis , or edema. NEUROLOGICAL: Awake and alert. No obvious cranial nerve deficits. Motor grossly within normal limits. Normal speech. PSYCHIATRIC: Appropriate mood and affect; insight and judgment normal. Medications and IVs Current Medications Medications (Trade) Dose Ordered Sig/Aliza Route Start Time Stop Time Status Last Admin (NS Flush) 2 ml UNSCH PRN FLUSH 07/02/16 01:30 (NS Flush) 2 ml BID FLUSH 07/02/16 09:00 Naloxone HCl 0.4 mg 0.4 mg UNSCH PRN IV 07/02/16 01:30 (NS 1000 ml Inj) 1,000 ml @ 100 mls/hr Q10H IV 07/02/16 11:00 07/02/16 21:00 (Zofran Inj) 4 mg Q6H PRN IV 07/02/16 10:30 07/02/16 11:19 ([place] 5-325 Mg) 1 tab Q6H PRN PO 07/02/16 10:30 Morphine Sulfate 4 mg 4 mg Q3H PRN IV PUSH 07/02/16 10:30 Pantoprazole Sodium 80 mg/ Sodium Chloride 100 ml @ 10 mls/hr Q10H IV 07/02/16 14:00 07/03/16 02:48 Metronidazole 100 ml @ 100 mls/hr Q8H IV 07/02/16 12:00 07/03/16 04:49 (Cipro 400 Mg Premix) 200 ml @ 200 mls/hr Q12H IV 07/02/16 14:00 07/03/16 00:34 A/P Assessment and Plan 21-year-old male with no significant past medical history who presents with abdominal pain, hematemesis, and dark stools Upper GI bleed: Upper abdominal pain, hematemesis, dark stools. Imaging review: Abdominal pelvis CT with no acute findings. Labs reviewed: Hemoglobin 11.9, previously 14.1 on 02/13/15 -Continue Protonix gtt. -GI consulted, planning on EGD -Stool studies with shigella -Pain control with [place] and IV morphine as needed. -Diet per GI, clear liquids for now, NPO after midnight -Supportive care with IVF and antiemetics -Trend H&H and transfuse if indicated, stable for now Shigella, diarrhea: -stool studies resulted, +shigella -Continue supportive treatment with IVF, antiemetics, pain control -change abx from IV to po Cipro 500mg bid x3days SIRS: Tmax 102.5, tachycardia, bandemia. Source as above with shigella diarrhea Abdominal CT unremarkable. Chest x-ray clear. Left middle finger paronychia appears to have resolved. -Stop oral Bactrim and Keflex, has completed 10 days -UA unremarkable -Empiric GI coverage with Cipro and Flagyl -Blood cultures pending Acute kidney injury: Creatinine 1.47, previously 1.06 on 02/13/15. -Continue IVF. - Repeat BMP with some improvement, continue to monitor Coagulopathy: Elevated PT, PTT, and INR 1.5. AST 52, otherwise LFTs within normal limits. Trend cardiac profile and LFTs. -Hepatitis panel negative DVT prophylaxis: SCDs. Avoid chemical prophylaxis with GI bleeding. Discussed with Dr. Webb. Avani Prince PA-C Jul 03, 2016 08:48
[2016-07-03] MEDS: SODIUM CHLORIDE 0.9% FLUSH 5 ML FLUSH FLUSH SCH ×2 (09:00→20:24)
[2016-07-03 10:30] LABS: BANDS 18 % (0-6); NEUTROPHIL # MANUAL DIFF 2.8 TH/MM3 (1.8-7.7); POLYS (SEG NEUTROPHILS) 29 % (16-70); WBC DIFF SAMPLE 100
[2016-07-03 10:31] LABS: OVALOCYTES 1+ (NORMAL); PLATELET ESTIMATE SMEAR NORMAL (NORMAL)
[2016-07-03 10:32] LABS: PLATELET MORPHOLOGY NORMAL (NORMAL); SCAN/DIFF FINAL DIFF MANUAL
[2016-07-03 12:24] VITALS: BP 149/73; PULSE 79; RESP 14; TEMP 97.9; O2SAT 97
[2016-07-03] MEDS ORDERED: PROPOFOL 200 MG/20 ML AMP IV ONE (12:40)
--- NOTE | 2016-07-03 12:52 | PD.PROCEDR ---
GI Procedure REFERRING PHYSICIAN GUME PROCEDURE PERFORMED EGD with biopsy INDICATION FOR PROCEDURE Melena and GI bleed PROCEDURE: The procedure, risks and benefits were discussed with Mr. Hollis and informed consent was obtained. Anesthesia sedated him with Diprivan. He was placed in the left lateral decubitus position. EGD: The Pentax videoscope was introduced through the oropharynx and advanced to the second portion of the duodenum under direct visualization. Retroflexion was performed in the stomach. FINDINGS: The esophagus there was streaky erythema in the distal esophagus consistent with reflux esophagitis and biopsies were taken The stomach the gastric mucosa was diffusely erythemic in a punctate patchy fashion in some of this was submucosal hemorrhaging biopsies were taken from the body and the antrum no ulcers or erosions were seen and no active bleeding ESTIMATED BLOOD LOSS: None SPECIMENS REMOVED: Gastric and esophageal samples COMPLICATIONS: None IMPRESSION: Reflux esophagitis Cardona gastritis PLAN: Await biopsy Avoid NSAIDs and aspirin Continue PPI Okay to advance diet and discharge from a GI standpoint Follow-up with GI in clinic Keith Cisneros MD Jul 03, 2016 12:52
[2016-07-03 13:17] VITALS: BP 155/64; PULSE 85; RESP 14; TEMP 98.2; O2SAT 96
[2016-07-03] MEDS: CIPROFLOXACIN 500 MG TAB PO SCH ×2 (14:05→20:24)
[2016-07-03 15:40] VITALS: BP 135/58; PULSE 83; RESP 16; TEMP 98.4; O2SAT 99
[2016-07-03 19:43] VITALS: BP 94/67; PULSE 90; RESP 23; TEMP 97.5; O2SAT 99
[2016-07-04 00:27] VITALS: BP 129/69; PULSE 73; RESP 20; TEMP 96.8; O2SAT 100
[2016-07-04] MEDS: SODIUM CHLOR 0.9% 1000 ML INJ 1,000 ML IV SCH (01:59)
[2016-07-04] MEDS: PANTOPRAZOLE INJ 80 MG in SODIUM CHLORIDE 0.9% INJ 100 ML IV SCH (01:59)
[2016-07-04] MEDS: metroNIDAZOLE 500 MG INJ 100 ML IV SCH (04:29)
[2016-07-04 04:31] VITALS: BP 112/62; PULSE 77; O2SAT 96
[2016-07-04 07:39] VITALS: BP 142/58; PULSE 70; RESP 14; TEMP 98.4; O2SAT 97
[2016-07-04 07:46] LABS: AUTOMATED NEUTROPHIL # 3.6 TH/MM3 (1.8-7.7); BASOPHIL % 0.2 % (0.0-2.0); HEMATOCRIT 37.4 % (39.0-51.0); LYMPHOCYTE # 1.7 TH/MM3 (1.0-4.8); MEAN CELL VOLUME 70.5 FL (80.0-100.0); MEAN CORPUSCULAR HEMOGLOBIN 22.8 PG (27.0-34.0); MEAN CORPUSCULAR HGB CONC 32.3 % (32.0-36.0); MONO % 10.5 % (0.0-8.0); NEUT % 61.3 % (16.0-70.0); PLATELET COUNT 145 TH/MM3 (150-450); RED CELL DISTRIBUTION WIDTH 13.4 % (11.6-17.2); WHITE BLOOD COUNT 5.9 TH/MM3 (4.0-11.0)
[2016-07-04 07:52] LABS: HEMO FLAGS AUTO DIFF
[2016-07-04 08:00] LABS: BICARBONATE 26.2 MEQ/L (21.0-32.0); POTASSIUM 3.7 MEQ/L (3.5-5.1)
[2016-07-04 08:39] LABS: OVALOCYTES 1+ (NORMAL); PLATELET ESTIMATE SMEAR LOW (NORMAL); PLATELET MORPHOLOGY NORMAL (NORMAL); SCAN/DIFF AUTO DIFF CONFIRMED
--- NOTE | 2016-07-04 08:47 | HHI.PR ---
Subjective Remarks Follow up for abdominal pain, diarrhea, GIB, with +shigella. The patient reports feeling much better today. No further episodes of diarrhea overnight. Last BM yesterday without any blood. Denies any nausea/vomiting/abdominal pain. He states he just feels "gassy". He tolerated dinner last night. Objective Vitals Vital Signs Date Time Temp Pulse Resp B/P Pulse Ox O2 Delivery O2 Flow Rate FiO2 07/04/16 07:39 98.4 70 14 142/58 97 07/04/16 04:31 77 112/62 96 07/04/16 00:27 96.8 73 20 129/69 100 07/03/16 19:43 97.5 90 23 94/67 99 07/03/16 15:40 98.4 83 16 135/58 99 07/03/16 13:17 98.2 85 14 155/64 96 07/03/16 12:59 91 16 122/68 99 07/03/16 12:54 92 16 142/67 100 07/03/16 12:49 98.2 88 16 134/76 100 07/03/16 12:24 97.9 79 14 149/73 97 I/O 07/03/16 07/03/16 07/03/16 07/04/16 07/04/16 07/04/16 07:00 15:00 23:00 07:00 15:00 23:00 Intake Total 100 ml Balance 100 ml Other 100 ml # Voids 1 Result Diagram: 07/04/16 0716 07/04/16 0716 Imaging Last Impressions Abdomen/Pelvis CT 07/02/16 0111 Signed Impressions: Service Date/Time: Saturday, July 02, 2016 01:24 - CONCLUSION: 1. No acute findings on abdomen and pelvic CT. Small right renal cyst. Small hiatal hernia. Herbert Garcia MD Chest X-Ray 07/01/16 4567 Signed Impressions: Service Date/Time: Friday, July 01, 2016 22:59 - CONCLUSION: No acute disease. Herbert Garcia MD Objective Remarks GENERAL: Well-nourished, well-developed young AA male patient in [facility]. SKIN: Warm and dry. No rash. HEENT: Normocephalic. Atraumatic. Pupils equal and round. No scleral icterus. No injection or drainage. Mucous membranes pink and moist. NECK: Supple. Trachea midline. CARDIOVASCULAR: Regular rate and rhythm. S1, S2 noted. No murmur appreciated. RESPIRATORY: No accessory muscle use. Clear to auscultation. Breath sounds equal bilaterally. GASTROINTESTINAL: Abdomen soft, nondistended, nontender today. Normoactive bowel sounds x4. MUSCULOSKELETAL: No obvious deformities. Extremities without clubbing, cyanosis , or edema. NEUROLOGICAL: Awake and alert. No obvious cranial nerve deficits. Motor grossly within normal limits. Normal speech. PSYCHIATRIC: Appropriate mood and affect; insight and judgment normal. Medications and IVs Current Medications Medications (Trade) Dose Ordered Sig/Aliza Route Start Time Stop Time Status Last Admin (NS Flush) 2 ml UNSCH PRN FLUSH 07/02/16 01:30 (NS Flush) 2 ml BID FLUSH 07/02/16 09:00 Naloxone HCl 0.4 mg 0.4 mg UNSCH PRN IV 07/02/16 01:30 (NS 1000 ml Inj) 1,000 ml @ 100 mls/hr Q10H IV 07/02/16 11:00 07/04/16 01:59 (Zofran Inj) 4 mg Q6H PRN IV 07/02/16 10:30 07/02/16 11:19 ([place] 5-325 Mg) 1 tab Q6H PRN PO 07/02/16 10:30 Morphine Sulfate 4 mg 4 mg Q3H PRN IV PUSH 07/02/16 10:30 Pantoprazole Sodium 80 mg/ Sodium Chloride 100 ml @ 10 mls/hr Q10H IV 07/02/16 14:00 07/04/16 01:59 (Flagyl 500 Mg Inj) 100 ml @ 100 mls/hr Q8H IV 07/02/16 12:00 07/04/16 04:29 (Cipro) 500 mg Q12HR PO 07/03/16 12:00 07/03/16 20:24 Urinary Catheter: No Vascular Central Line Catheter: No A/P Assessment and Plan 21-year-old male with no significant past medical history who presents with abdominal pain, hematemesis, and dark stools Upper GI bleed: Upper abdominal pain, hematemesis, dark stools. Imaging review: Abdominal pelvis CT with no acute findings. Labs reviewed: Hemoglobin 11.9, previously 14.1 on 02/13/15 -S/p Protonix gtt. -GI consulted, performed EGD 07/03, showed reflux esophagitis, small hiatal hernia , and pangastritis -Stool studies with +shigella -H&H stable -Supportive care with IVF, antiemetics, pain control with [place] and IV morphine as needed. -Advance diet as tolerating, patient tolerating well -plan to discharge today, Discussed with Dr. Cisneros, cleared for d/c Shigella, diarrhea: -stool studies resulted, +shigella -Continue supportive treatment with IVF, antiemetics, pain control -change abx from IV to po Cipro 500mg bid x3days SIRS: Tmax 102.5, tachycardia, bandemia. Source as above with shigella diarrhea Abdominal CT unremarkable. CXR clear. Left middle finger paronychia appears to have resolved. -Stop oral Bactrim and Keflex, has completed 10 days -UA unremarkable -Empiric GI coverage with Cipro and Flagyl -Blood cultures with NGTD Acute kidney injury: Creatinine 1.47, previously 1.06 on 02/13/15. -Continue IVF. -Repeat BMP with much improvement, Cr 1.15 Coagulopathy: Elevated PT, PTT, and INR 1.5. AST 52, otherwise LFTs within normal limits. Trend cardiac profile and LFTs. -suspect secondary to shigella toxin -Hepatitis panel negative -INR trended down to 1.1 DVT prophylaxis: SCDs. Avoid chemical prophylaxis with GI bleeding. Discussed with Dr. Webb and Dr. Cisneros Discharge Planning Discharge patient to home Condition on discharge: Improved Regular Diet as tolerated Ad Cheryl activity Rx written: Cipro, Protonix Follow-up with primary care physician and gastroenterology in 1 week Avani Prince PA-C Jul 04, 2016 08:47
[2016-07-04] MEDS ORDERED: CIPR-9 PO (08:48)
[2016-07-04] MEDS ORDERED: PANT40TA3 PO (08:48)
--- NOTE | 2016-07-04 08:49 | HHI.DCPOC ---
Discharge Care Plan Diagnosis: (1) Shigella gastroenteritis (2) Reflux esophagitis (3) Gastritis (4) Hiatal hernia Your Health Problems Are: Irregular Bowel Function Goals to Promote Your Health * To prevent worsening of your condition and complications * To maintain your health at the optimal level Directions to Meet Your Goals Take your medications as prescribed Follow your dietary instruction Follow activity as directed Keep your appointments as scheduled Take your immunizations and boosters as scheduled If your symptoms worsen call your PCP, if no PCP go to Urgent Care Center or Emergency Room Smoking is Dangerous to Your Health. Avoid second hand smoke Call the 24-hour hour crisis hotline for domestic abuse at Avani Prince PA-C Jul 04, 2016 8:49 am
[2016-07-04] MEDS: CIPROFLOXACIN 500 MG TAB PO SCH (08:55)
[2016-07-04] MEDS: SODIUM CHLORIDE 0.9% FLUSH 5 ML FLUSH FLUSH SCH (08:55)
[2016-07-04] MEDS ORDERED: PANTOPRAZOLE SOD 40 MG DELAYED RELEASE TAB PO SCH (09:00)
[2016-07-04 11:22] VITALS: BP 153/84; PULSE 73; RESP 16; TEMP 98.4
== END 2016-07-04 12:50 | disposition home or self-care (01) | DRG 871 ==
LOC: NEPE 20:11 → INTOOBSV 07-02 01:14 → NEDA 07-02 01:14 → NEPHCDU 07-02 03:37 → OBSVTOIN 07-02 12:34
PROVIDERS: ADMIT Hospitalist; ATTEND Hospitalist
PROC: 0DB68ZX Excision of Stomach, Via Natural or Artificial Opening Endoscopic, Diagnostic (ICD-10-PCS; 2016-07-03)
PROC: 0DB38ZX Excision of Lower Esophagus, Via Natural or Artificial Opening Endoscopic, Diagnostic (ICD-10-PCS; principal; 2016-07-03 12:30)
DX: A41.9 Sepsis, unspecified organism (principal); K29.71 Gastritis, unspecified, with bleeding; N17.9 Acute kidney failure, unspecified; D69.6 Thrombocytopenia, unspecified; N28.1 Cyst of kidney, acquired; A09 Infectious gastroenteritis and colitis, unspecified; K44.9 Diaphragmatic hernia without obstruction or gangrene; A03.9 Shigellosis, unspecified
CPT/HCPCS: 71010; 74177; 80048; 80053; 80074; 80076; 81001; 83690; 83735; 85007; 85014; 85018; 85025; 85027; 85610; 85730; 86850; 86900; 86901; 87040; 87205; 87493; 87506; 88305; 88312; 96361; 96374; C9113; J0744; J2405; J7030; Q9967